=== PATIENT | male | born 1955 | race Caucasian/White ===

== ENCOUNTER 2017-09-28 10:08 | Inpatient (IN) | payer BC ==
[2017-09-28] VITALS (13 sets, daily range): BP systolic 127–186; BP diastolic 65–102
[~2017-09-28] VITALS: Ht 190.5 cm; Wt 102.1 kg
--- NOTE | ~2017-09-28 | H ---
[address] [address] HISTORY AND PHYSICAL Name: RAFAT MCMILLAN Room: [address]R.#: [id number] Admission: 09/28/17 Attend Phys: Edson Vergara MD, Discharge: 09/29/17 Date of : 55 Report #: [id number] THIS REPORT FOR: //name// Please refer to the History and Physical performed in the physician's office. By: [facility]3Medical Records Staff NATHALY /MATTHIEU
[~2017-09-28 10:08] MED LIST: ASPIR 8181 MG PO; ATENOLOL 100MG100 MG PO; EFFIENT10 MG PO; GLIPIZIDE 10 MG10 MG PO; HYDROCODONE-AP1 EAC6 PO; IMDUR 30 MG TAB30 M1 PO; LISINOPRIL20 MG PO; METFORMIN HCL500 MG PO; OMEPRAZOLE40 MG PO; PIOGLITAZONE15 MG PO; PREDNISONE 20 M20 MG PO; UNICOMPLEX M TA1 TA1 PO
[2017-09-28 10:35] LABS: HEMOGLOBIN 13.2 gm/dL (14.0-18.0); MCHC 32.9 g/dL (28.0-37.0); MCV 91.3 fL (80.0-100.0); MPV 7.9 fl. (7.2-11.1); RBC 4.38 mil/uL (4.50-6.00); RDW-CV 14.5 % (10.5-14.5); WBC 13.9 thou/uL (4.0-11.0)
[2017-09-28 10:45] LABS: ANION GAP 11 mmol/L (7-16); BUN 22 mg/dL (7-18); CALCIUM 8.8 mg/dL (8.5-10.1); CHLORIDE 104 mmol/L (98-107); CO2 26 mmol/L (21-32); GLUCOSE 243 mg/dL (70-99); POTASSIUM 3.6 mmol/L (3.5-5.1); SODIUM 141 mmol/L (136-145)
[2017-09-28 10:47] LABS: APTT 22.7 Seconds (25.0-31.3); PROTIME 9.9 Seconds (9.20-11.50)
[2017-09-28 10:51] LABS: ALBUMIN 3.6 g/dL (3.4-5.0); ALKALINE PHOSPHATASE 57 U/L (46-116); CHOLESTEROL 336 mg/dL (<200); HDL CHOLESTEROL 46 mg/dL (>40); LDL CHOLESTEROL 210 mg/dL (<100); SGOT 16 U/L (15-37); SGPT 33 U/L (30-65); TC:HDL 7.3 Ratio (Not establshd); TOTAL BILIRUBIN 0.4 mg/dL (<0.1-1.0); TOTAL PROTEIN 7.1 g/dL (6.4-8.2); TRIGLYCERIDE 400 mg/dL (<150); VLDL 80 mg/dL (<40)
[2017-09-28 10:53] LABS: SERUM ASSESSMENT Clear
--- NOTE | 2017-09-28 18:00 | NUR ---
PT ARRIVED VIA GURNEY AND B2B ACCOUNT EXECUTIVE STAFF TO UNIT AT 1640. VS OBTAINED AND ASSESSMENT COMPLETE. PT IN NO APPARENT DISTRESS, STATES THAT PAIN IN L CHEST IS 3/10 PER NUMERIC PAIN SCALE. REASSESSED AT 1700 FOR PRN PAIN EXTRUSION PROCESS OPERATOR AND FOUND PT TO BE MORE COMFORTABLE, STATES DOES NOT NEED PAIN MED. PT REMAINS LAYING FLAT WITH R LE STRAIGHT. FÉLIX WELL. R GROIN SITE COVERED WITH GAUZE/TEGADERM C/D/I WITHOUT DRAINAGE. NO BRUISING/HEMATOMA PRESENT. BELONGINGS INVENTORY TAKEN. RECOMMENDED THAT PT ALLOW WALLET TO BE SENT TO SECURITY OFFICE BUT PT STATES HE WANTS TO KEEP ALL BELONGINGS IN ROOM WITH HIM. PT HAS CALL LIGHT IN REACH AND IS ABLE TO COMMUNICATE NEEDS TO STAFF.
[2017-09-29] VITALS (8 sets, daily range): BP systolic 106–162; BP diastolic 62–91
--- NOTE | 2017-09-29 04:05 | NUR ---
ASSUMED CARE OF PT AT 1930, NURSING ASSESSMENT COMPLETED, PT CONTINUES ON TELE MONITOR, TRACING SINUS RHYTHM THIS SHIFT, DENIES CHEST PAIN. DRESSING TO RIGHT GROIN CDI. HOURLY ROUNDING COMPLETED, CALL LIGHT WITHIN REACH.
[2017-09-29 05:12] LABS: HEMATOCRIT 35.2 % (42.0-52.0); HEMOGLOBIN 11.7 gm/dL (14.0-18.0); MCH 29.7 pg (26.0-34.0); MCHC 33.3 g/dL (28.0-37.0); MCV 89.3 fL (80.0-100.0); MPV 8.2 fl. (7.2-11.1); RBC 3.94 mil/uL (4.50-6.00); RDW-CV 14.5 % (10.5-14.5); WBC 11.3 thou/uL (4.0-11.0)
[2017-09-29 05:36] LABS: CALCIUM 8.2 mg/dL (8.5-10.1); CREATININE 0.9 mg/dL (0.6-1.3)
[2017-09-29 05:37] LABS: TROPONIN-I LEVEL 1.6 ng/mL (<0.06)
--- NOTE | 2017-09-29 08:00 | NUR ---
AM ASSESSMENT COMPLETE, DEFER TO COMPUTER CHARTING. BILINGUAL SOCIAL WORKER TRACKING SR. DENIES CHEST PAIN, DIZZINESS, SOA OR ANY DISCOMFORT AT THIS TIME. BANDAIDE DRESSING CDI TO RIGHT GROIN, SLIGHY BRUISING - SOFT TO PALPATE. CALL LIGHT WITHIN REACH. WILL MONITOR.
--- NOTE | 2017-09-29 10:48 | CARD ---
[address] [address] CARDIAC CATH REPORT Name: RAFAT MCMILLAN Room: [address] IN .R.#: [id number] Admission: 09/28/17 Attend Phys: Edson Vergara MD, Discharge: Date of : 55 Report #: [id number] THIS REPORT FOR: //name// APPROVED REPORT Patient Details Patient Status: Out-Patient Room #: The patient is a 62 year-old male Event Personnel Edson Vergara Nanotechnology Engineering Technician, Vianca Salas, Yaquelin Reza Pupil Personnel Worker, Dewey Woodard (R) Satnam, Asha Bose RN Pupil Personnel Worker Procedures Performed Art Access - R femoral artery* , Selective Right and Left Coronary Angiography, Left Ventriculogram, PTCA with Stenting Indication Unstable angina Risk Factors Hypercholesterolemia, Hypertension Previous Procedures/Diagnoses Previous PCI Admission/Lab Medications/Medications given during procedure Aspirin, Platelet Aff. Inhib., Angiomax bolus and infusion Procedure Narrative The patient was brought electively to the Cardiac Catheterization Laboratory and was prepped and draped in a sterile manner. The right femoral was infiltrated with 1% Lidocaine subcutaneous anesthesia. A Dumfries 6 FR sheath was inserted into the right femoral artery. Coronary angiography was performed using coronary diagnostic catheters. The right coronary system was accessed and visualized with a JL 4.0 6 FR catheter. The left coronary system was accessed and visualized with a JL 3.5 6fr catheter. The left ventricle was accessed and visualized with a Diagnostic catheter. Left ventricular/Aortic Valve gradient assessed via catheter pullback. Left ventriculogram was performed in BEAL projection. Pre-demployment femoral angiogram was performed . Closure device was deployed with a 6 Fr MynxGrip 6/7F. The patient tolerated [place] [address] CARDIAC CATH REPORT Name: DASHUBALDORAFAT Room: [address]#: [id number] Admission: 09/28/17 Attend Phys: Edson Vergara MD, Discharge: Date of : 55 Report #: [id number] there were no complications associated with the procedure. Intraoperative Conscious Sedation Sedation start time: 13:04 Case end Time: 14:30 Fentanyl 150 mcg Versed 6 mg Fluoro Time: 30 minutes Dose: DAP 007907 cGycm2 4887.23 mGy Contrast Type and Amount: Visipaque 720 ml Coronary Angiography The patient's coronary anatomy is right dominant. Diagnostic Cath Left Main 0% narrowing LAD Family status 5% tubular proximalmid LAD stenosis with 90% ostial first diagonal stenosis Circumflex 40% mid vessel narrowing Right Coronary Large dominant vessel with widely patent proximal and mid vessel stents 40% narrowing of the proximal portion of the prominent posterolateral branch of the distal right coronary artery Left Ventriculography The left ventricular ejection fraction is estimated to be 60%. There is no mitral insufficiency. Hemodynamics The aortic pressure is 141/68 mmHg with a mean of mmHg. The left ventricular pressure is 140/14 and diastolic mmHg with a mean of mmHg. The left ventricular end diastolic pressure is 13 mmHg. There was no gradient across the aortic valve upon pullback. PCI Technique Lesion Anticoagulation was achieved with Angiomax. Percutaneous coronary intervention was performed on the first diagnonal branch segment. The lesion stenosis prior to intervention was 90% with MP 3 flow. A 6FR XB 3.0 100CM Guide Catheter was used to engage the LCA ostium. A IG: ProwaterFlex 180CM Interventional Guidewire was used to cross the lesion. BALLOON DILATION A Balloon catheter Trek RX 2.25 X 8 was inserted and inflated up to 8.00atm for 17seconds. Additional Inflation: 10.00atm for 13seconds. Additional Inflation: 6.00atm for 7seconds. 10 LILLIE @ [address] [place] [address] CARDIAC CATH REPORT Name: RAFAT MCMILLAN Room: [address]#: [id number] Admission: 09/28/17 Attend Phys: Edson Vergara MD, Discharge: Date of : 55 Report #: [id number] STENT DEPLOYMENT A drug-eluting stent Xience Alpine RX 2.25X08 was inserted and inflated up to 8.00atm for 16seconds. Additional Inflation: 9.00atm for 11seconds. Final angiography reveals 40 % stenosis with MP 3 flow. PCI Technique Lesion 2 Percutaneous Coronary Intervention was performed on the mid left anterior descending artery segment. The lesion stenosis prior to intervention was 75% with MP 3 flow. A 6FR XB 3.0 100CM Guide Catheter was used to engage the ostium. A IG: BMW 190cm Interventional Guidewire was used to cross the lesion. Balloon Dilation A Balloon catheter Trek RX 2.5 X 15 was inserted and inflated up to 10.00atm for 10seconds. Additional Inflation: 10.00atm for 13seconds. Additional Inflation: 10.00atm for 9seconds. Stent Deployment A drug-eluting stent Xience Alpine RX 2.5X33 was inserted and inflated up to 12.00atm for 17seconds. Additional Inflation: 14.00atm for 7seconds. Final angiography reveals 0 % stenosis with MP 3 flow. Comments There is a final kissing balloon dilatation within 2.75 x 12 mm NC trek in the mid LAD and a 2.0 x 8 mm trek in the diagonal both inflated to 10 lillie for 10 seconds. PCI Technique Lesion 3 Percutaneous Coronary Intervention was performed on the proximal left anterior descending artery segment. The lesion stenosis prior to intervention was 75% with MP 3 flow. A 6FR XB 3.0 100CM Guide Catheter was used to engage the ostium. A IG: BMW 190cm Interventional Guidewire was used to cross the lesion. Stent Deployment A drug-eluting stent Xience Alpine RX 2.75X12 was inserted and inflated up to 15.00atm for 13seconds. Additional Inflation: 14.00atm for 9seconds. Additional Inflation: 12.00atm for 9seconds. 14 LILLIE @ [address] [address] CARDIAC CATH REPORT Name: RAFAT MCMILLAN Room: [address] IN M.R.#: [id number] Admission: 09/28/17 Attend Phys: Edson Vergara MD, Discharge: Date of : 55 Report #: [id number] Final angiography reveals 0 % stenosis with MP 3 flow. Conclusion #1 significant multivessel coronary artery disease characterized by the following: A 75% tubular proximalmid LAD stenosis with 80-90% ostial first diagonal narrowing, B 40% narrowing in the midportion nondominant circumflex, and C large dominant right coronary artery with patent proximal and mid vessel stenosis with 40% narrowing of the proximal portion of prominent posterolateral branch #2 normal global left ventricular systolic function, estimate ejection fraction being 60% # 3 normal left-sided hemodynamics study, #4 successful percutaneous coronary intervention with deployment of sequential drug-eluting stents at the site of 75% tubular proximalmid LAD stenosis with 0% residual narrowing following stent deployment and MP-3 flow the distal vessel. #5Successful percutaneous coronary intervention with deployment of drug-eluting stent at site of 90% ostial first diagonal narrowing with 40% narrowing following final kissing balloon dilatation Recommendations Cardiac Risk Reduction Program Aggressive Medical Therapy Medications Administered Aspirin (any) Prasugrel Diagnostic Cath Approved by: Edson Vergara MD Date/Time: 09/29/17 at 10:46 AM <ELECTRONICALLY SIGNED> By: Edson Vergara MD, FACC 09/29/17 1048 1048 1048Edson Vergara MD, FAC /INF
--- NOTE | 2017-09-29 13:28 | NUR ---
DISCHARGE ORDERS RECEIVED. PIPE INSPECTOR TRACKING WITH NO CHANGE IN RHYTHM. CONTINUES TO DENY CHEST PAIN, DIZZINESS OR ANY DISCOMFORT. PIPE INSPECTOR AND SALINE LOCK DC'D. EDUCATED ON DISCHARGE INSTRUCTIONS, VERBALIZED UNDERSTANDING HAVING NO QUESTIONS. ALL PERSONAL BELONGINGS COLLECTED BY PATIENT.
--- NOTE | 2017-09-29 13:39 | D ---
[address] [address] DISCHARGE SUMMARY Name: RAFAT MCMILLAN Room: [address] IN M.R.#: [id number] Admission: 09/28/17 Attend Phys: Edson Vergara MD, Discharge: Date of : 55 Report #: [id number] THIS REPORT FOR: //name// CC: Roque Vergara DATE OF SERVICE: 09/29/2017 FINAL DISCHARGE DIAGNOSES: 1. Unstable angina. 2. Coronary artery disease. 3. Status post percutaneous coronary intervention of the LAD and prominent diagonal. 4. Hypertension. 5. Hyperlipoproteinemia. 6. Mild diet-controlled diabetes. PROCEDURES: 09/28/2017 -- left heart catheterization, left ventriculography, selective coronary arteriography and percutaneous coronary intervention with deployment of drug-eluting stent in the mid LAD and the first diagonal branch. The patient is a pleasant 62-year-old male with a history of coronary artery disease, 1 year 5 months status post stenting of the proximal and mid right coronary stenoses. He presented with recurrent chest pain similar to his prior angina following an unstable course. In this context, I performed recatheterization on 09/28/2017, which revealed 75% tubular mid LAD stenosis with 90% ostial narrowing of the prominent diagonal that emanated from the mid LAD. The previously deployed right coronary stents were widely patent. There was 40% mid circumflex narrowing. Left ventricular function appeared normal globally with a question of subtle mid anterior hypokinesis. In this context, I performed percutaneous coronary intervention, deploying 2 drug-eluting stents, one 2.5 x 33 and a 2.75 x 12 just proximal to that in the LAD with no significant residual narrowing. I also stented the diagonal that emanated from the mid portion of this region with a 2.25 x 8 mm Xience Alpine deployed at 8-10 atmospheres. The former finding of kissing balloon dilatation with a 2.75 x 12 balloon in the LAD and a 2.0 x 8 in the diagonal, both inflated to 10 atmospheres. There was no residual narrowing in the LAD and a 30% to 40% in the diagonal. The patient had chest pain post-procedurally, which remitted after a nonspecific analgesic therapy. Troponin wes minimally to 1.6. Cholesterol was 336, with an LDL of 210, triglycerides of 400 and HDL of 46 mg percent. The patient ambulated in the hallways without difficulty, and there was good hemostasis at the right femoral site of catheterization. He was discharged to home in stable condition on the following medications: [place] [address] DISCHARGE SUMMARY Name: RAFAT MCMILLAN Jean Room: [address] IN [facility].#: [id number] Admission: 09/28/17 Attend Phys: Edson Vergara MD, Discharge: Date of : 55 Report #: [id number] Hydrocodone/acetaminophen 1 tablet every 4 hours as needed for pain, p.r.n. sublingual nitroglycerin, aspirin 162 mg daily, atenolol 100 mg daily, glipizide 20 mg daily, isosorbide mononitrate 30 mg daily, lisinopril 20 mg daily, metformin 1000 mg b.i.d., to be resumed on 10/01. Multivitamin with minerals, omeprazole 40 mg daily, pioglitazone 30 mg daily. Prasugrel 10 mg daily, with a 60 mg loading dose given periprocedurally. Prednisone 20 mg daily, Zetia 10 mg daily. HE IS STATIN INTOLERANT and thus that will not be included in his discharge medications. Follow up will be with my nurse practitioner in 1 week and myself in 4 weeks. He is discharged home in stable condition on the aforementioned medications with followup as iterated above. The patient was discharged from room 201. <ELECTRONICALLY SIGNED> By: Edson Vergara MD, [facility] 09/29/17 1339 0955 1055Edson Vergara MD, FACC /nt
[2017-09-29] MEDS ORDERED: NITROGLYCERIN0.4 MG SUBLING (14:03)
--- NOTE | 2017-09-29 14:14 | EKG ---
[place] [address] ELECTROCARDIOGRAM REPORT Name: RAFAT MCMILLAN Room: [address] IN .R.#: [id number] Admission: 09/28/17 Attend Phys: Edson Vergara MD, Discharge: Date of : 55 Report #: [id number] THIS REPORT FOR: //name// [facility] Test Date: 2017-09-28 Test Time: 10:41:37 Pat Name: RAFAT MCMILLAN Department: Room: [facility] Gender: M Road Crew Member: : 1955 Requested By: Edson Vergara Order Number: [id number] Shana MD: Edson Vergara Measurements Intervals [place] Rate: 72 P: 44 AL: 161 QRS: 25 QRSD: 90 T: 5 QT: 366 QTc: 401 Interpretive Statements Sinus rhythm Abnormal R-wave progression, early transition Borderline ST elevation, anterior leads, suggest early repolarization Compared to ECG 04/23/2016 09:49:[address]-t changes have remitted Electronically Signed On 09-29-2017 14:14:42 HOT WALKER by Edson Vergara [email or web address] <ELECTRONICALLY SIGNED> By: Edson Vergara MD, [facility] 09/29/17 1414 1041 1041 Edson Vergara MD, [facility] /EPI
[2017-09-29] MEDS ORDERED: ZETIA10 MG PO (14:17)
--- NOTE | 2017-09-29 15:23 | EKG ---
[place] [address] ELECTROCARDIOGRAM REPORT Name: RAFAT MCMILLAN Room: [address] IN [facility].#: [id number] Admission: 09/28/17 Attend Phys: Edson Vergara MD, Discharge: Date of : 55 Report #: [id number] THIS REPORT FOR: //name// [facility] Test Date: 2017-09-28 Test Time: 15:13:56 Pat Name: RAFAT MCMILLAN Department: Room: [facility] Gender: M School Standards Coach: BERYL : 1955 Requested By: Edson Vergara Order Number: [id number] Reading MD: Nixon De Dios Measurements Intervals [place] Rate: 77 P: 53 TN: 166 QRS: 50 QRSD: 96 T: 21 QT: 368 QTc: 417 Interpretive Statements Sinus rhythm Borderline ST elevation, anterolateral leads Compared to ECG 04/23/2016 09:49:00 ST (T wave) deviation now present Myocardial infarct finding no longer present T-wave abnormality no longer present Possible ischemia no longer present Electronically Signed On 09-29-2017 15:23:20 SAIL REPAIR PERSON by Nixon De Dios [email or web address] <ELECTRONICALLY SIGNED> By: Nixon De Dios MD, [facility] 09/29/17 1523 1513 1513 Nixon De Dios MD, [facility] /EPI
--- NOTE | 2017-09-29 15:23 | EKG ---
[place] [address] ELECTROCARDIOGRAM REPORT Name: RAFAT MCMILLAN Room: [address] IN [facility].#: [id number] Admission: 09/28/17 Attend Phys: Edson Vergara MD, Discharge: Date of : 55 Report #: [id number] THIS REPORT FOR: //name// [facility] Test Date: 2017-09-28 Test Time: 14:48:47 Pat Name: RAFAT MCMILLAN Department: Room: [facility] Gender: M Fisher Seal: BERYL : 1955 Requested By: Edson Vergara Order Number: [id number] Reading MD: Nixon De Dios Measurements Intervals [place] Rate: 78 P: 54 [place]: 155 QRS: 45 QRSD: 103 T: 33 QT: 370 QTc: 422 Interpretive Statements Sinus rhythm Abnormal R-wave progression, early transition ST elevation suggests acute pericarditis Baseline wander in lead(s) II,III,aVF Compared to ECG 04/23/2016 09:49:00 ST (T wave) deviation now present Myocardial infarct finding no longer present T-wave abnormality no longer present Possible ischemia no longer present Electronically Signed On 09-29-2017 15:23:17 TRANSFER MAN by Nixon De Dios [email or web address] <ELECTRONICALLY SIGNED> By: Nixon De Dios MD, [facility] 09/29/17 1523 1448 1448 Nixon De Dios MD, [facility] /EPI
--- NOTE | 2017-09-29 15:27 | EKG ---
[place] [address] ELECTROCARDIOGRAM REPORT Name: RAFAT MCMILLAN Room: [address] IN [facility].#: [id number] Admission: 09/28/17 Attend Phys: Edson Vergara MD, Discharge: Date of : 55 Report #: [id number] THIS REPORT FOR: //name// [facility] Test Date: 2017-09-29 Test Time: 06:59:17 Pat Name: RAFAT MCMILLAN Department: Room: [facility] Gender: M Manager Business Planning: : 1955 Requested By: Edson Vergara Order Number: [id number] Reading MD: Nixon De Dios Measurements Intervals [place] Rate: 79 P: 49 CT: 163 QRS: 38 QRSD: 89 T: -17 QT: 369 QTc: 424 Interpretive Statements Sinus rhythm Borderline T abnormalities, inferior leads Compared to ECG 04/23/2016 09:49:00 Myocardial infarct finding no longer present Possible ischemia no longer present T-wave abnormality still present Electronically Signed On 09-29-2017 15:26:[address] AGENT by Nixon De Dios [email or web address] <ELECTRONICALLY SIGNED> By: Nixon De Dios MD, FACC 09/29/17 1526 0659 0659 Nixon De Dios MD, [facility] /EPI
== END 2017-09-29 15:00 | disposition home or self-care (01) | DRG 247 ==
LOC: M.CL 10:08 → M.TBA-CV 15:05 → M.2W 15:05
PROVIDERS: ADMIT Internal Medicine
PROC: 027136Z Dilation of Coronary Artery, Two Arteries with Three Drug-eluting Intraluminal Devices, Percutaneous Approach (ICD-10-PCS; principal; 2017-09-29)
PROC: B215YZZ Fluoroscopy of Left Heart using Other Contrast (ICD-10-PCS; principal; 2017-09-29)
PROC: 4A023N7 Measurement of Cardiac Sampling and Pressure, Left Heart, Percutaneous Approach (ICD-10-PCS; principal; 2017-09-29)
PROC: B211YZZ Fluoroscopy of Multiple Coronary Arteries using Other Contrast (ICD-10-PCS; principal; 2017-09-29)
DX: I25.110 Atherosclerotic heart disease of native coronary artery with unstable angina pectoris (principal); I10 Essential (primary) hypertension; E78.5 Hyperlipidemia, unspecified; E11.9 Type 2 diabetes mellitus without complications

== ENCOUNTER → 2020-07-17 | Outpatient (CLI) | payer BC ==
[~2020-07-17] MED LIST changes: +NITROGLYCERIN0.4 MG SUBLING; +ZETIA10 MG PO
--- NOTE | 2020-07-30 14:30 | CARDNUC ---
[place] [address] CARDIAC NUCLEAR IMAGING REPORT Name: RAFAT MCMILLAN Room: [facility]#: [id number] Admission: 07/17/20 Attend Phys: Rommel Barfield Discharge: Date of : 55 Date of Service: 07/30/20 1430 Report #: [id number] THIS REPORT FOR: cc: Maynor Perez Meng, Zhao Liston, Michael J. MD [facility] ~ APPROVED REPORT Imaging Protocol: Resting only images Study performed: 07/17/2020 14:42:38 BMI: 0 Resting Data Rest SPECT myocardial perfusion imaging was performed in supine position 30 minutes following the intravenous injection of 9.8 mCi of Tc-99m Sestamibi. Time of rest injection: 13:15 Date: 07/17/2020 The images were gated to evaluate regional wall motion and calculate left ventricular ejection fraction. Administration Route: IV Stress Test Details HR Max Heart Rate (APMHR): 155 bpm Resting HR: 104 bpm Target HR (85% APMHR): 131 bpm BP Resting BP: 171/93 mmHg ECG Resting ECG: Sinus Tachycardia Clinical Stress testing not accomplished due to elevated blood pressure. Additionally the patient had a cough and was not feeling well. Stress ECG Conclusion The baseline twelve-lead EKG shows sinus rhythm without significant ST segment abnormality. Study Quality Study: Fair Artifact: [place] [address] CARDIAC NUCLEAR IMAGING REPORT Name: RAFAT MCMILLAN Room: [facility]#: [id number] Admission: 07/17/20 Attend Phys: Rommel Barfield Discharge: Date of : 55 Date of Service: 07/30/20 1430 Report #: [id number] Perfusion Only resting perfusion images obtained in a supine position. Photopenia noted in the inferior and inferoseptal wall. There were no prone images or stress images to compare to. Wall Motion Resting gated images show preserved left ventricular systolic function with a calculated ejection fraction of 63%. There is inferoseptal wall motion abnormality of unknown significance noted. Nuclear Conclusion Only resting images obtained. Inferior wall motion and perfusion abnormalities noted suggesting the possibility of prior inferior wall infarct. No stress images obtained for comparison. This is an incomplete study. <Conclusion> The baseline twelve-lead EKG shows sinus rhythm without significant ST segment abnormality. <ELECTRONICALLY SIGNED> By: Trevor Ramirez MD, FACC 07/30/201429 29 29 Trevor Ramirez MD, FACC /INF
== END ==
LOC: M.NUC 07-01 13:06
PROVIDERS: ATTEND Internal Medicine
DX: I25.119 Atherosclerotic heart disease of native coronary artery with unspecified angina pectoris (principal); I10 Essential (primary) hypertension; E11.9 Type 2 diabetes mellitus without complications; Z95.5 Presence of coronary angioplasty implant and graft

== ENCOUNTER → 2020-08-19 | Outpatient (CLI) | payer BC | LOC: M.RAD 13:56 | PROVIDERS: ATTEND Internal Medicine | DX: J20.9 Acute bronchitis, unspecified (principal) ==

== ENCOUNTER → 2020-08-25 | Outpatient (CLI) | payer BC ==
--- NOTE | 2020-08-25 16:10 | EXE ---
[place] [address] STRESS ECHOCARDIOGRAM Name: HIPOLITORAFAT Jean Room: [facility]#: [id number] Admission: 08/25/20 Attend Phys: Trevor Ramirez, Discharge: Date of : 55 Date of Service: 08/25/20 1609 Report #: [id number] THIS REPORT FOR: cc: Maynor Perez Meng, Zhao Liston, Michael J. MD [facility] ~ APPROVED REPORT Study performed: 08/25/2020 15:04:49 Exam: Stress Echocardiogram Indication: Dyspnea Patient Location: Out-Patient Stress Nurse: Earnestine Rivera RN Supervising Physician: Trevor Ramirez MD Ht: 6 ft 3 in HR: 114 bpm BP: 181/101 mmHg Medical History Medical History: CAD Cardiac Risk Factors: Age, , Hyperlipidemia, HTN, DM, Tobacco History (Former) Procedure The patient underwent an Exercise Stress Test using the Nikolay Protocol. Blood pressure, heart rate, and EKG were monitored. An Echocardiogram was performed by nuclear technician in four stages in quad fashion. At peak stress, four selected images were obtained and placed side by side with resting images for comparison. Stress Test Details Stress Test: Exercise stress testing was performed using a Nikolay protocol. HR Resting HR: 114 bpm Max Heart Rate (APMHR): 155 bpm Max HR Achieved: 171 bpm Target HR (85% APMHR): 131 bpm % of APMHR: 110 Recovery HR: 121 bpm HR response to stress: Accelerated HR response to stress BP Resting BP: 181/101 [place] [address] STRESS ECHOCARDIOGRAM Name: RAFAT MCMILLAN Room: [facility]#: [id number] Admission: 08/25/20 Attend Phys: Trevor Ramirez, Discharge: Date of : 55 Date of Service: 08/25/20 1609 Report #: [id number] Max BP: 264/113 mmHg Recovery BP: 170/108 mmHg BP response to stress: Abnormal hypertensive response to stress. ECG Resting ECG: Sinus Tachycardia Stress ECG: Sinus Tachycardia ST Change: None Arrhythmia: None Recovery ECG: Sinus Tachycardia Recovery ST Change: None Recovery Arrhythmia: None Clinical Reason for Termination: Completed protocol Exercise duration: 6 min 5 sec Highest Stage Achieved: Stage 2: 2.5 mph at 12% grade. Exercise capacity: 7.05 METs The patient exercised per standard Nikolay protocol. The patient exhibited poor exercise tolerance. Exercise was stopped at 6 minutes due to hypertensive response to exercise and dyspnea. He had no chest pain with exercise. Stress ECG Conclusion The baseline twelve-lead EKG shows sinus tachycardia without significant ST segment or T wave abnormality. EKGs obtained during and post exercise show sinus tachycardia with no significant ST segment or T wave changes when compared to baseline. There were no stress-induced arrhythmias. Pre-Stress Echo The resting Echocardiogram showed normal left ventricular contractility with an estimated Ejection Fraction of about 60-65%. The resting echocardiogram demonstrated normal wall motion in all wall segments. Post-Stress Echo The stress Echocardiogram showed normal left ventricular contractility with an estimated Ejection Fraction of about >70%. Compared to rest, there were no stress-induced wall motion abnormalities. Conclusion Clinical Response: Non-ischemic Exercise Capacity: Below Average Stress ECG Response: [place] [address] STRESS ECHOCARDIOGRAM Name: RAFAT MCMILLAN Room: [facility]#: [id number] Admission: 08/25/20 Attend Phys: Trevor Ramirez, Discharge: Date of : 55 Date of Service: 08/25/201608 Report #: [id number] Stress Echo Images: Non-ischemic Accelerated HR response to stress. Abnormal hypertensive response to stress. Other Information Study Quality: Fair <Conclusion> Accelerated HR response to stress. Abnormal hypertensive response to stress. <ELECTRONICALLY SIGNED> By: Trevor Ramirez MD, FACC 08/25/201608 08 08 Trevor Ramirez MD, FACC /INF
== END ==
LOC: M.CRD 14:53
PROVIDERS: ATTEND Internal Medicine Cardiovascular Disease
DX: I25.119 Atherosclerotic heart disease of native coronary artery with unspecified angina pectoris (principal)